=== PATIENT | female | born 1965 | race Caucasian/White ===

== ENCOUNTER → 2017-01-02 | Outpatient (CLI) | payer MEDICARE, OTHER ==
[2015-10-05 22:08] VITALS: BP 130/79
[~2017-01-02] MED LIST: DICL50TA2 PO; DOCU-109 PO; DOXY100C2 PO; DULO60CA6 PO; OMEP20TA8 PO; POLY17PO29 PO; PSYL1PAC7 PO
--- NOTE | 2017-01-02 14:00 | KCIC ---
MRI of the lumbar spine without contrast 01/02/2017 CLINICAL HISTORY: Chronic low back pain which radiates down the left leg with left leg numbness. TECHNIQUE: Unenhanced T1-weighted and T2-weighted sagittal and axial and inversion recovery sagittal images of the lumbar spine were obtained. FINDINGS: No previous studies are available for comparison. For the purposes of this dictation 5 lumbar vertebrae have been assumed. L5 is partially sacralized. The L5-S1 disc is small. Mild lateral curvature of the lumbar spine is seen convex to the right. Degenerative signal changes are seen involving the L2-3, L3-4, L4-5 and L5-S1 discs. Degenerative signal changes are seen within the marrow surrounding these discs. Loss of height of the L3-4, L4-5 and L5-S1 discs is noted. The conus medullaris is normal in morphology, position and signal characteristics. The L1-2 disc space is within normal limits. At the L2-3 disc space there is a mild generalized disc bulge. Degenerative changes are seen involving the facet joints bilaterally. There is mild ligamentum flava hypertrophy bilaterally. These findings do not result in significant central spinal canal or neural foraminal stenosis. At the L3-4 disc space there is a moderate generalized disc bulge. Superimposed on the disc bulge is a left paracentral focal disc herniation which extrudes superiorly as a free disc fragment. This measures 1.6 x 1.3 x 0.6 cm craniocaudal, transverse and AP dimensions. The extruded disc fragment extends in a left paracentral location throughout the L3 level. It results in moderate left lateral central spinal canal stenosis at the mid and lower L3 level. At the level of the disc space degenerative changes are seen involving the facet joints bilaterally. There is moderate ligamentum flavum hypertrophy. These findings when combined result in moderate central spinal canal stenosis. Severe left lateral recess stenosis is seen. The extruded left paracentral disc herniation appears to impinge to some degree upon the left L3 nerve root within the left lateral aspect of the central spinal canal. Mild left neural foraminal stenosis is seen. The right neural foramen is patent. At the L4-5 disc space there is a moderate generalized disc bulge. Degenerative changes are seen involving the facet joints bilaterally. There is moderate ligamentum flavum hypertrophy bilaterally. These findings when combine result in mild to moderate central spinal canal stenosis. Mild to moderate right greater than left neural foraminal stenosis is noted. At the L5-S1 disc space there is an minimal generalized disc bulge. Degenerative changes are seen involving the facet joints bilaterally. These findings do not result in significant central spinal canal or neural foraminal stenosis. IMPRESSION: The changes of degenerative disc disease are seen throughout the lumbar spine. These findings result in moderate central spinal canal stenosis at L3-4 and mild to moderate central spinal canal stenosis at L4-5. Mild left neural foraminal stenosis is seen at L3-4. Mild to moderate right greater than left neural foraminal stenosis is seen at L4-5. At the L3 level a left paracentral extruded disc herniation is seen which appears to extend superiorly from the L3-4 disc. This results in moderate left lateral central spinal canal stenosis at the mid and lower L3 level. Severe left lateral recess stenosis is seen at L3-4. This disc herniation appears to impinge to some degree upon the left L3 nerve root within the left lateral aspect of the central spinal canal as outlined above. Electronically signed by: Maxwell Rogers MD (01/02/2017 1:57 PM)
== END | disposition home or self-care (01) ==
LOC: KCIC MRI 10:58
DX: M47.896 Other spondylosis, lumbar region (principal); M48.06 Spinal stenosis, lumbar region
CPT/HCPCS: 72148

== ENCOUNTER → 2017-03-12 | Outpatient (CLI) | payer MEDICARE, OTHER ==
[2015-10-05 22:08] VITALS: BP 130/79
--- NOTE | 2017-03-12 14:08 | KCIC ---
PELVIS W/TV History: Left lower quadrant pelvic pain Comparison: None. Findings: Multiple transabdominal sonographic images of the pelvis are submitted. Uterus measured 6.8 x 2.6 x 4.2 cm. Ovaries are not well visualized. Transvaginal ultrasound: Multiple transvaginal sonographic images of the pelvis are submitted. There are some calcifications of the endometrium. Endometrium is thin, less than 0.2 cm in thickness. No free fluid is seen. There are varices in the adnexal regions bilaterally. Left ovary measured 2.3 x 1.1 x 1.8 cm. Right ovary measured 1.2 x 1.2 x 1.3 cm. There is normal low resistance vascularity of both ovaries. Impression: 1. There are some varices of the adnexal regions bilaterally and some nonspecific endometrial calcifications, no other significant abnormality identified. Electronically signed by: Flaco Cortes MD (03/12/2017 2:05 PM) [id number]
== END | disposition home or self-care (01) ==
LOC: KCIC US 12:27
PROVIDERS: ATTEND Physician Assistant Medical
DX: R10.2 Pelvic and perineal pain (principal)
CPT/HCPCS: 76830; 76856

== ENCOUNTER 2019-10-23 18:06 | Emergency (ER) | payer MEDICARE, OTHER ==
[~2019-10-23] VITALS: Ht 152.4 cm; Wt 60.0 kg
[2019-10-23] MEDS ORDERED: ONDANSETRON PF 4 MG/2 ML VIAL. IVP ONE (18:30)
[2019-10-23] MEDS ORDERED: IV NORMAL SALINE 1000ML BAG 1,000 ML IV SCH (18:30)
[2019-10-23 18:45] LABS: BASO % 0 % (0-3); EOS # 0.1 x10^3/uL (0.0-0.7); EOS % 1 % (0-3); HEMATOCRIT 45.5 % (36.0-47.0); HEMOGLOBIN 15.1 g/dL (12.0-15.5); LYMPH # 0.9 x10^3/uL (1.0-4.8); LYMPH % 7 % (24-48); MEAN CORPUSCULAR HEMOGLOBIN 29 pg (25-35); MEAN CORPUSCULAR HGB CONC 33 g/dL (31-37); MEAN CORPUSCULAR VOLUME 89 fL (79-100); MONO % 8 % (0-9); NEUT # 10.9 x10^3/uL (1.8-7.7); NEUT % 85 % (31-73); PLATELET COUNT 198 x10^3/uL (140-400); RED BLOOD COUNT 5.13 x10^6/uL (3.50-5.40); RED CELL DISTRIBUTION WIDTH 14.1 % (11.5-14.5); WHITE BLOOD COUNT 12.9 x10^3/uL (4.0-11.0)
--- NOTE | 2019-10-23 18:49 | PHYS DOC ---
Past Medical History Past Medical History: Abscess, Arthritis Additional Past Medical Histor: DDD, SPINAL STENOSIS Past Surgical History: Additional Past Surgical Histo: LIVER BX Smoking Status: Current Every Day Smoker Alcohol Use: None Drug Use: None General Adult EDM: Chief Complaint: NAUSEA/VOMITING/DIARRHA HPI: HPI: Patient is a 54 year old female who presents with complaint of not feeling well for the last few days. Patient states that she's been having some urinary discomfort and has also had an episode of nausea with vomiting. Patient also complains of some chills and body aches. She is not sure whether or not she is been running a fever because she doesn't have a thermometer at home. She denies any chest pain but does admit some intermittent shortness of breath that she believes is associated with her COPD. She does admit to a cough that is been nonproductive. She states that is typical for her COPD.[] Review of Systems: Review of Systems: Constitutional: Positive chills. [] Respiratory: Positive cough and intermittent shortness of breath. [] Cardiovascular: Denies chest pain or edema. [] GI: Denies abdominal pain. Complains of nausea and vomiting without diarrhea. [] Integument: Denies rash. [] Neurologic: Denies headache, focal weakness or sensory changes. [] A full 10 point review of systems has been reviewed and is otherwise negative. Heart Score: Risk Factors: Risk Factors: DM, Current or recent (<one month) smoker, HTN, HLP, family history of CAD, obesity. Risk Scores: Score 0 - 3: 2.5% MACE over next 6 weeks - Discharge Home Score 4 - 6: 20.3% MACE over next 6 weeks - Admit for Clinical Observation Score 7 - 10: 72.7% MACE over next 6 weeks - Early Invasive Strategies Current Medications: Current Medications Medications (Trade) Dose Ordered Sig/Dong Start Time Stop Time Status Last Admin Dose Admin Ondansetron HCl (Zofran) 4 mg 1X ONCE 10/23/19 18:30 10/23/19 18:31 DC Sodium Chloride 1,000 ml @ 1,000 mls/hr Q1H 10/23/19 18:30 10/23/19 19:29 Allergies: Allergies: Allergies Coded Allergies Type Severity Reaction Last Updated Verified I S O L A T I O N *CONTACT* Allergy Unknown 10/10/14 Yes tramadol Adverse Reaction Intermediate vomiting 04/27/14 Yes Physical Exam: PE: Constitutional: Well developed, well nourished, no acute distress, non-toxic appearance. [] HENT: Normocephalic, atraumatic, bilateral external ears normal, oropharynx moist, no oral exudates, nose normal. [] Eyes: PERRLA, EOMI, conjunctiva normal, no discharge. [] Neck: Normal range of motion, no tenderness, supple. [] Cardiovascular: Regular rate and rhythm[] Lungs & Thorax: Bilateral breath sounds clear to auscultation [] Abdomen: Bowel sounds normal, soft, with mild suprapubic tenderness. [] Skin: Warm, dry, no erythema, no rash. [] Extremities: No tenderness, no cyanosis, no clubbing, ROM intact. [] Neurologic: Alert and oriented X 3, no focal deficits noted. [] EKG: EKG: EKG demonstrates sinus rhythm at a rate of 98.[] Radiology/Procedures: Radiology/Procedures: [] Course & Med Decision Making: Course & Med Decision Making Pertinent Labs and Imaging studies reviewed. (See chart for details) [] Dragon Disclaimer: [employer] Disclaimer: This electronic medical record was generated, in whole or in part, using a voice recognition dictation system. Departure Departure Impression: Primary Impression: UTI (urinary tract infection) Qualified Codes: N39.0 - Urinary tract infection, site not specified; R31.9 - Hematuria, unspecified Disposition: 01 HOME, SELF-CARE Condition: STABLE Referrals: MAGDA REYNA (PCP) Patient Instructions: Urinary Tract Infection Scripts Ondansetron (ONDANSETRON ODT) 4 Mg Tab.rapdis 1 TAB PO PRN Q6-8HRS PRN for NAUSEA, #15 TAB Prov: AIDEN FERREIRA Jr. DO 10/23/19 Sulfamethoxazole/Trimethoprim (BACTRIM DS TABLET) 1 Each Tablet 1 TAB PO BID for 10 Days, #20 TAB 0 Refills Prov: AIDEN FERREIRA Jr. DO 10/23/19 AIDEN FERREIRA Jr. DO Oct 23, 2019 18:49
[2019-10-23 18:58] LABS: CALCIUM 8.8 mg/dL (8.5-10.1); CREATININE 1.9 mg/dL (0.6-1.0); GFR 27.4; POTASSIUM 3.2 mmol/L (3.5-5.1)
[2019-10-23 19:04] LABS: ALBUMIN 3.1 g/dL (3.4-5.0); ALBUMIN/GLOBULIN RATIO 0.6 (1.0-1.7); TOTAL BILIRUBIN 1.1 mg/dL (0.2-1.0); TOTAL PROTEIN 8.1 g/dL (6.4-8.2)
[2019-10-23 19:56] LABS: BILIRUBIN,URINE NEGATIVE (NEG); CLARITY,URINE CLOUDY; COLOR,URINE YELLOW; NITRITE,URINE NEGATIVE (NEG); PROTEIN,URINE >=300 mg/dL (NEG-TRACE); UROBILINOGEN,URINE 0.2 mg/dL (0.2 mg/dL)
[2019-10-23 20:00] LABS: BACTERIA,URINE MODERATE /HPF (0-FEW); SQUAMOUS EPITHELIAL CELL,UR MANY /LPF; WBC,URINE TNTC /HPF (0-4)
[2019-10-23 20:09] LABS: AMPHETAMINE/METHAMPHETAMINE POS (NEG); BARBITURATES NEG (NEG); BENZODIAZEPINES NEG (NEG); CANNABINOIDS NEG (NEG); COCAINE NEG (NEG); METHADONE NEG (NEG); OPIATES NEG (NEG); PHENCYCLIDINE NEG (NEG)
[2019-10-23] MEDS ORDERED: SULF1TAB24 PO (20:29)
[2019-10-23] MEDS ORDERED: ONDA4TAB12 PO (20:29)
[2019-10-23 20:51] VITALS: BP 127/58
[2019-10-23] MEDS ORDERED: cefTRIAXone IV Push 1 GM VIAL. IVP ONE (21:00)
== END 2019-10-23 21:00 | disposition home or self-care (01) ==
LOC: ER 18:06
DX: N39.0 Urinary tract infection, site not specified (principal); R31.9 Hematuria, unspecified; R11.2 Nausea with vomiting, unspecified; F17.200 Nicotine dependence, unspecified, uncomplicated; Z91.041 Radiographic dye allergy status; Z88.8 Allergy status to other drugs, medicaments and biological substances
CPT/HCPCS: 36415; 80053; 80307; 81001; 83690; 85025; 87086; 96361; 96374; 96375; 99284; J0696; J2405; J7030